=== PATIENT | female | born 1995 | race Caucasian/White ===

== ENCOUNTER 2024-05-08 16:52 | Inpatient (IN) | payer SELFPAY ==
[2024-05-08] VITALS (11 sets, daily range): BP systolic 134–149; BP diastolic 79–91; PULSE 70–88; RESP 14–16; TEMP 37.1–37.2; O2SAT 98; BMI 23.3
[2024-05-08] MEDS: Oxytocin 10 UNITS/ML Vial IM (16:08)
--- NOTE | 2024-05-08 16:14 | HP.PCM.OB_ITS ---
HPI - General General Date of Admission: 05/08/24 [facility] Mike LUCERO, is a 29 F who presents IAL 10 cm precipitous delivery, she received care in [place] by [facility], [facility], and started joe an hour ago, came here and presented with a bulging bag at 10 cm. PFSH PFSH Allergy/AdvReac Type Severity Reaction Status Date / Time No Known Allergies Allergy Verified 05/08/24 16:02 NST FHR Rate Baby A Baseline: 130 ROS Constitutional Constitutional: Reports systems reviewed and no addt'l complaints, except as documented ENT HEENT: Reports systems reviewed and no addt'l complaints, except as documented Cardiovascular Cardiovascular: Reports systems reviewed and no addt'l complaints, except as documented Respiratory/Chest Respiratory/Chest: Reports systems reviewed and no addt'l complaints, except as documented Gastrointestinal Gastrointestinal: Reports systems reviewed and no addt'l complaints, except as documented and nausea; Denies abdominal pain Genitourinary Genitourinary: Reports systems reviewed and no addt'l complaints, except as documented, contractions Details: present and frequency (regular ) and movement Details: present Musculoskeletal Musculoskeletal: Reports systems reviewed and no addt'l complaints, except as documented Integumentary Integumentary: Reports as per HPI Neurologic Neurologic: Reports systems reviewed and no addt'l complaints, except as documented Endocrine Endocrinology: Reports systems reviewed and no addt'l complaints, except as documented Vital Signs Vital Signs Vital Signs: 05/08/24 16:08 05/08/24 16:08 05/08/24 16:08 Pulse Rate 76 Blood Pressure 134/84 H BP Systolic 134 BP Diastolic 84 Pulse Ox 98 Physical Exam Const alert, oriented x3 and healthy appearing Constitutional Narrative: uncomfortable with contractions HEENT normocephalic and moist oral mucous membranes Head and Scalp: atraumatic Neck full ROM, no lymphadenopathy, supple and thyroid normal General: trachea midline Thyroid: thyroid normal Lymph Lymphatic: no lymphadenopathy noted Chest inspection of chest normal Resp normal respiratory effort Cardio regular rate GI soft to palpation and non-tender Inspection: gravid external exam normal Bimanual Exam - Vag & Uterus: uterus non-tender Manual OB Exam: estimated gestational size appropriate, presentation cephalic, dilated, effaced and station Extremity normal to inspection General Extremity: Negative for edema Skin no rashes or lesions noted Neuro Motor Exam: strength 5/5 throughout Psych mental status grossly normal Labs Labs Labs: No Data to Display Assessment & Plan (1) Precipitous delivery: COMMENT: JENNIFER gonsalves brody precip delivery 39 care at [place] PLAN: Plan admitted and delivered
--- NOTE | 2024-05-08 16:20 | EX.PCM.OBRPT ---
Assessment & Plan (1) Precipitous delivery: COMMENT: SM IAQasim skinner precip delivery 39 care at [place] Vaginal Delivery Operative Information Pre-Operative Diagnosis: see a/p diagnoses Post-Operative Diagnosis: same Surgery / Procedure Performed: Spontaneous Vaginal Delivery Type of Anesthesia: Epidural Special Medications: none Estimated Blood Loss: 200 Fluids Replaced: crystalloid Findings Description of Procedure: Patient began pushing on hands and knees and delivered the head in the cal presentation. The head was delivered atraumatically . The anterior and posterior shoulders delivered without complication followed by the rest of the infant and the infant was placed on the maternal abdomen. Delayed cord clamping was employed for approximately 60 seconds. Cord was clamped and cut and gentle traction was applied to the cord and the placenta delivered spontaneously immediately following it was noted to be intact with three-vessel cord. The perineum and vagina were inspected and noted to have no laceration. EBL was 200 cc. Patient and infant tolerated delivery well. Amniotic Fluid Description: Clear Placental Delivery Description: Spontaneous Placenta Disposition: [facility] Cord Vessel Description: 3 Vessels Cord Entanglement: None Delayed Cord Clamping: Yes Post Vaginal Delivery Medications Given After Delivery: - (Pitocin) Episiotomy Description: None Complication Complications: None Procedures Urinary/Genital [id number]: [id number] Vaginal Delivery+ Care([facility])
--- NOTE | 2024-05-08 16:21 | DCINST_ITS ---
Discharge Instructions Diet Discharge Diet: No restrictions Activity Discharge Activity: Return to Normal Activity, May Not Drive (while taking narcotic pain medications.) and May Shower May resume sexual activity in: 4-6 weeks Dressing / Incision Call your doctor if your incision/area has: Continuous Slow Oozing, Sudden Increased Bleeding, Increased Pain/ Swelling, Increased Redness and Foul Smelling Discharge Follow Up Care Please Follow Up With: Yina Davila MD When: Call [phone] to make an appointment with your doctor in 6 weeks. If you had elevated blood pressure or 4th degree laceration, you will need to be seen in 2 weeks. Test Results: Test results from this visit will be discussed in further detail at your follow- up appointment, if applicable. Discharge Plan Admission Admit Date/Time: 05/08/24 15:50 Attending Provider: Yina Davila Disposition Disposition (needs filled in before D/C Order can be placed): Home, Self Care
[2024-05-08 16:37] LABS: Absolute Lymphocyte Count 2.93 X10^3/uL (0.83-4.51); Absolute Neutrophil Count 5.7 X10^3/uL (2.0-7.7); Basophil# 0.02 X10^3/uL; Basophil% 0.2 % (0-1); Eosinophil# 0.08 X10^3/uL; Eosinophils% 0.9 % (0-5); Hematocrit 34.4 % (37-47); Hemoglobin 10.9 g/dL (12.0-15.0); Lymphocyte # 2.93 X10^3/ul (0.83-4.51); Lymphocyte % 31.3 % (19-41); Mean Corp Hgb Conc 31.7 g/dL (32-36); Mean Corpuscular Hgb 26.8 pg (27.0-32.0); Mean Corpuscular Volume 84.5 fL (81-99); Mean Platelet Vol. 11.3 fl (6.2-12.0); Monocyte# 0.55 X10^3/uL; Monocyte% 5.9 % (0-10); NRBC Flagged by Analyzer 0 % (0-5); Neutrophil # 5.73 X10^3/uL (2.7-7.7); Neutrophil % 61.1 % (47-70); Platelet Count 174 K/mm3 (150-450); RBC Distribution Width SD 39.4 fl (35.1-43.9); Red Blood Count 4.07 M/mm3 (4.2-5.4); White Blood Count 9.4 K/mm3 (4.4-11.0)
[2024-05-09] VITALS: BP 135/83; PULSE 82; RESP 16; TEMP 37.2
[2024-05-09 04:45] VITALS: BP 120/74; PULSE 78; RESP 17; TEMP 36.8; O2SAT 99
--- NOTE | 2024-05-09 08:00 | PCM.PN.OB ---
Subjective Subjective Patient doing well without complaints. Tolerating PO. Ambulating and voiding without difficulty. Feeding well. Denies chest pain, shortness of breath, calf pain/swelling, fevers, chills, lightheadedness. Objective Data Objective Data Vital Signs: Vital Signs Temp Pulse Resp BP Pulse Ox O2 Del Method 98.3 F 78 17 120/74 99 Room Air 05/09/24 04:45 05/09/24 04:45 05/09/24 04:45 05/09/24 04:45 05/09/24 04:45 05/09/24 04:45 Oxygen Delivery Method Room Air Weight: 140 lb Body Mass Index (BMI) 23.3 Intake & Output: Intake and Output for Last 24 Hours 05/07/24 05/08/24 05/09/24 23:59 23:59 23:59 Output Total 200 / 200 Balance -200 / -200 Lab / Micro Data 05/08/24 16:15 Labs: Laboratory Results - last 24 hr 05/08/24 16:15: WBC 9.4, RBC 4.07 L, Hgb 10.9 L, Hct 34.4 L, MCV 84.5, MCH 26.8 L, MCHC 31.7 L, RDW Std Deviation 39.4, RDW Coeff of Robert 13.0, Plt Count 174, MPV 11.3, Immature Gran % (Auto) 0.600, Neut % (Auto) 61.1, Lymph % (Auto) 31.3, [place] % (Auto) 5.9, Eos % (Auto) 0.9, Baso % (Auto) 0.2, Absolute Neuts (auto) 5.7, Absolute Lymphs (auto) 2.93, Nucleated RBC % 0, Blood Type A NEGATIVE, Antibody Screen NEGATIVE 05/08/24 18:50: Screen NEGATIVE, Baby's Blood Type A POSITIVE, Baby's MAURY NEGATIVE ROS Constitutional Constitutional: Reports systems reviewed and no addt'l complaints, except as documented; Denies anorexia or headache(s) Cardiovascular Cardiovascular: Reports systems reviewed and no addt'l complaints, except as documented; Denies dizziness, dyspnea, nausea or tachypnea Respiratory/Chest Respiratory/Chest: Reports systems reviewed and no addt'l complaints, except as documented; Denies cough, dyspnea, shortness of breath at rest or tachypnea Gastrointestinal Gastrointestinal: Reports systems reviewed and no addt'l complaints, except as documented; Denies abdominal pain, constipation or nausea Genitourinary Genitourinary: Reports systems reviewed and no addt'l complaints, except as documented; Denies burning urination, difficulty urinating, dysuria, urinary frequency or urinary incontinence Musculoskeletal Musculoskeletal: Reports systems reviewed and no addt'l complaints, except as documented Integumentary Integumentary: Reports systems reviewed and no addt'l complaints, except as documented Neurologic Neurologic: Reports systems reviewed and no addt'l complaints, except as documented; Denies abnormal speech, dizziness or headache(s) Psychiatric Psychiatric: Reports systems reviewed and no addt'l complaints, except as documented Endocrine Endocrinology: Reports systems reviewed and no addt'l complaints, except as documented Hematologic/Lymphatic Hematologic/Lymphatic: Reports systems reviewed and no addt'l complaints, except as documented Physical Exam Const alert, oriented x3 and no apparent distress Neck full ROM Resp normal respiratory effort, normal air movement and no retractions Effort and Inspection: able to speak in complete sentences and symmetric chest movement GI soft to palpation Bladder / Kidney Exam: bladder normal to palpation Uterus Palpation: uterus fundus firm Extremity normal to inspection and full ROM Psych mental status grossly normal, thought process normal and cooperative Assessment & Plan (1) Precipitous delivery: COMMENT: JENNIFER skinner precip delivery 39 care at [place] PLAN: s/p KIRAN PPD # 1 1. routine post delivery care 2. breast feeding- support given 3. rh positive 4. rubella immune Charges/Coding Multi Select Codes Urinary/Genital Urinary/Genital CPT Codes: No Charge
[2024-05-09 08:04] VITALS: BP 134/83; PULSE 73; RESP 14; TEMP 36.9; O2SAT 96
[2024-05-09 11:28] VITALS: BP 117/94; PULSE 68; RESP 18; TEMP 36.6; O2SAT 99
--- NOTE | 2024-05-09 14:09 | CASEMGMT ---
Social Work Assessment Labor and Delivery Unit Patient Address:[address] [place], [place] [address] Phone number: [phone] Date of Referral: 05/09/24 Time of Referral:? 050 Referred By: Dr. Davila Date of Intervention: ??05/09/24 Time of Intervention:? 1214 Reason for Referral:? limited feeding of infant/ limited PNC/ poor care of infant Sw completed chart review and acknowledges social work consult. Sw presented to bedside and introduced self to mother of baby (SERJIO- Frandy). Sw explained reason for sw involvement and completed psychosocial assessment. History obtained from: medical records, MOB Household composition: Currently residing in the home is MOB, father of baby (ASHLEY- Ankush), their 2 year old daughter- Tess and baby to be added to family home when ready for discharge. MOB states that housing is safe and secure. - MOB reports that currently paternal grandma and her father are staying with them temporarily due to the new baby being born. They will be able to stay to help them for a couple of weeks. Patient's parent/guardian status:? SERJIO reports that she and FOShaun have been together for 3 years after meeting at [employer] where she was working at that time. MOB states that she and FOB have healthy relationship and denied any domestic violence or intimate partner violence. ? Medical History: ?SERJIO is 29 year old female who is 4, para 1- now 2 following labor and delivery of . SERJIO received limited care, beginning at 19 weeks gestation. When discussing this, SERJIO reports that she has had several miscarriages before her daughter was born, so she did not feel the need to go to appointments until she believed the was viable. SERJIO states that when she started to attend her appointments she was going to [facility], and then discovered that they are not a labor and delivery hospital. SERJIO presented to [facility] in active labor. SERJIO delivered baby via vaginal delivery on 05/08/24. Baby boy, named Angel Rowan, was born weighing 5lb 5oz with apgars of 8 and 9 at one and five minutes of life, respectfully. SERJIO reports that she is breast feeding and today it is going well. When discussing the frequency of feeds- SERJIO states that yesterday baby was not waking to feed, and she did not see the need to wake him- believing that he would wake when he felt hungry. Nursing staff have provided education to MOB regarding this- and have informed her of the importance of baby eating every 2- 3 hours, or before hand if showing cues. MOB states that today baby has been eating more frequently today. - After completing assessment, jamie informed by Patent Prosecution Paralegal Dr. Meadows that baby requires transfer to [facility] NICU due to imperforate anus. Sw called NICU social human services assistants and provided handoff for NICU social human services assistants, Kavon Gonzalez. Educational Status:? SERJIO reports that both parents graduated from high school. MOB states that she attended some college did not obtain her degree. MOB denies issues with reading, learning or comprehension. 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 Infant Supplies:??Parents have obtained all necessary baby supplies, including: car seat, safe sleep space, clothes, diapers and wipes. Childcare/Caregiver(s):? SERJIO will be the primary caregiver to baby, along with ASHLEY. Transportation:?? SERJIO states that she has her drivers license, but does not have a car. SERJIO reports that FOShaun has his drivers license and reliable means of transportation. MOB states that ASHLEY took her to her appointments. Programs/Agencies Involved: ??SERJIO states that she is not connected to any community agencies that assist them financially. SERJIO reports that she recently obtained a list of community agencies that provide food resources, such as [employer]. Children Services/Legal Issues:?SERJIO denies prior involvement with children services. No referral to be made at this time. A referral to [facility] may be warranted if MOB does not get baby and two year old connected and seen regularly by a medical sales associate. - SERJIO states that her two year old went to her well check appointments for the first couple of months, but did not continue to see a medical sales associate after that due to MOB not believing there was a need for her to be followed. - Jamie explained to MOB that it is extremely important for children, and babies, to be seen regularly by a medical sales associate to ensure that they are growing and meeting milestones as expected. Jamie educated MOB that if a child falls behind developmentally it can significantly impact their neurological growth as well. Sw explained to MOB that newborns are expected to gain back their weight within a period of time, and if that does not happen a can become failure to thrive. - Should MOB/ FOB continue to not provide medical support for and 2 year old it could be implied as medical neglect which would be appropriate for a referral to be made to Children Services. ? Behavioral Health Issues: ??Mental Health History:?MOB denies mental health history for herself or FOB. ?? Substance Use History: MOB denies substance use prior to and during . ?? Family History:??MOB reports that her mom has history of alcohol use, as well as her grandparents, uncle and her brother. Sw educated MOB to be aware of her genetic disposition and to ensure that she uses healthy and appropriate coping skills opposed to seeking comfort from drugs or alcohol during this period. ??? Drug Screens: ?No drug screens observed during chart review. ? Family/Social Stressors:? MOB denies any issues, concerns or stressors at this time. - Sw informed that MOB anxious to be discharged at same time as baby so she is able to be with him at [facility] NICU. Support Systems: MOB states that FOB, paternal grandma, maternal grandpa, and some friends are her biggest supports. Depression/Shaken Baby/Safe Sleeping:?Sw educated MOB at length regarding signs and symptoms of baby blues and mood and anxiety disorders to be mindful of during this period. MOB states that FOB may not be able to recognize if she is struggling with her mental health during this time. MOB states that even if he is unable to recognize her mental health is struggling, he would know how to help and support her if it is something that she talks with him about. Sw encouraged MOB to have a conversation with FOB about this and to inform him what would be beneficial for her. Sw educated MOB on shaken baby prevention and ABCs of safe sleep. MOB expressed understanding. ASSESSMENT:? MOB and baby admitted following labor and delivery of . Baby ultimately required transfer to [facility] NICU due to imperforate anus. MOB being discharged as well so she is able to be at [facility] with baby. Concerns explored due to MOB not feeding baby at recommended intervals (2-3 hours) explaining that she did not think it was warranted because animals do not require to be awaken to eat when they are just born. Much education and information provided to MOB from bedside nursing staff, medical sales associate, and sw. MOB also states that she does not have insurance and has not gotten her 2 year old connected to a medical sales associate. Education and support provided. List of pediatricians provided to MOB that are available to get her children connected to. MOB observed to hold baby and look at him lovingly and appropriately. MOB asked sw appropriate questions and participated in completion of assessment. PLAN:? MOB to be discharged and baby being transferred to [facility] NICU. No discharge date established for baby at this time. Literature and information provided to MOB: Safe sleep space, shaken baby prevention, mood and anxiety disorders to be mindful of, list of [facility] resources available for MOB to access if warranted. ?No other services requested or indicated. Chandrika Goldberg, POCKET BUILDER, CUSTOMER SERVICE AND SALES CONSULTANT
[2024-05-09] MEDS: Rho(D) Immune Globulin 300 MCG (1500 Unit) Syringe IV (14:56)
== END 2024-05-09 16:10 | disposition home or self-care (01) | DRG 807 ==
PROVIDERS: Admitting Provider Obstetrics & Gynecology; Visit Provider Obstetrics & Gynecology
DX: O62.3 Precipitate labor (principal); Z37.0 Single live birth; Z3A.39 39 weeks gestation of pregnancy
CPT/HCPCS: 59025; 59050; 85025; 85461; 86780; 86850; 86900; 86901; 90384; 99221; G0378; J2790; J2791